=== PATIENT | female | born 1965 | race American Indian/Alaskan Native ===

== ENCOUNTER 2017-08-19 07:30 | Day surgery (SDC) | payer BC ==
[2017-08-19 08:14] VITALS: BMI 27.3
--- NOTE | 2017-08-19 09:07 | CP.SDSHP ---
Same Day Surgery H & P - History Proposed Procedure: colonoscopy - Allergies Allergies: Allergies No Known Allergies Allergy (Verified 08/19/17 08:14) - Physical Exam Vital Signs: Vital Signs 08/19/17 08:17 Temperature 97.1 F L Pulse Rate 72 Respiratory 19 Rate Blood Pressure 122/76 O2 Sat by Pulse 100 Oximetry - Date & Time Date: 08/19/17 Time: 09:07 Short Stay Discharge - Short Stay Discharge Admitting Diagnosis/Reason for Visit: SCREENING Disposition: HOME/ ROUTINE
[2017-08-19] MEDS ORDERED: Propofol 10 mg/ml Inj (20 ML) ONE (09:38)
[2017-08-19] MEDS ORDERED: Lactated Ringer's 1,000 ML IV ONE ×2 (09:41)
[2017-08-19] MEDS ORDERED: Lactated Ringer's 500 ML IV SCH (10:00)
[2017-08-19 10:29] VITALS: TEMP 96.8; O2SAT 100
[2017-08-19 11:07] VITALS: BP 121/69; PULSE 69; RESP 15
== END 2017-08-19 11:20 | disposition home or self-care (01) ==
LOC: C.ENDO 07:30
PROVIDERS: ATTEND Colon & Rectal Surgery
DX: Z12.11 Encounter for screening for malignant neoplasm of colon (principal); D12.4 Benign neoplasm of descending colon; K64.8 Other hemorrhoids
CPT/HCPCS: 45385; 88305; J2704; J3010; J7120